=== PATIENT | female | born 1990 | race Caucasian/White ===

== ENCOUNTER 2025-02-26 16:57 | Emergency (ER) | payer BC, SELFPAY ==
[2025-02-26 17:00] VITALS: BP 112/73; PULSE 76; RESP 18; TEMP 36.3; O2SAT 99; BMI 23.2
--- NOTE | 2025-02-26 17:28 | CRLHL7_ITS ---
For Patients: As a result of the Century Cures Act, medical imaging exams and procedure reports are released immediately into your electronic medical record. You may view this report before your referring provider. If you have questions, please contact your health care provider. INDICATION: ABD PAIN, LOWER BACK PAIN TECHNIQUE: CT abdomen and pelvis acquired with 66 cc Isovue 370 IV contrast. COMPARISON: None. FINDINGS: Lower chest: 2 millimeter right lower lobe subpleural indeterminate nodule, likely intrapulmonary lymphoid tissue. ABDOMEN: Liver: Normal enhancement. No focal suspicious hepatic lesions. Gallbladder and biliary: Normal gallbladder without radiopaque stone. Normal caliber bile ducts. Spleen: Normal size and enhancement. Pancreas: Normal enhancement without peripancreatic inflammatory changes or ductal dilatation. Adrenal glands: Normal adrenal glands. Kidneys and ureters: Mild left-sided hydroureteronephrosis secondary to a 3 millimeter stone in the distal left ureter. No right hydroureteronephrosis. GI tract: The stomach is relatively decompressed. Normal caliber small and large bowel loops. Normal appendix. Vascular structures: Normal caliber abdominal aorta. Lymph nodes: No lymphadenopathy in the abdomen or pelvis by size criteria. Peritoneum: Trace free fluid in the pelvis. No free air or focal drainable collection. PELVIS: Genitourinary system: Urinary bladder is decompressed. Age-appropriate uterus and ovaries. SKELETAL STRUCTURES AND SOFT TISSUES: Sclerotic foci in the pelvis statistically represent bone islands. IMPRESSION: Mild left-sided hydroureteronephrosis secondary to a 3 millimeter stone in the distal left ureter. Please note that all CT scans at this facility use dose modulation, iterative reconstruction, and/or weight-based dosing when appropriate to reduce radiation dose to as low as reasonably achievable. Dictated by Royal Valdivia MD @ 02/26/2025 6:30:50 PM (Electronically Signed)
--- NOTE | 2025-02-26 17:30 | ED.ABDPAIN ---
HPI - Abdominal Pain General Chief Complaint: Abdominal Pain Stated Complaint: abdomen pain Time Seen by Provider: 02/26/25 17:07 History of Present Illness HPI narrative: This 35-year-old female comes in reporting abdominal pain. This began about 3 days ago and was coming and going somewhat and till last evening when it became constant and has worsened since then. She states that she has had some associated nausea and vomiting. She does not report any fevers. She does have some loss of appetite. She states that the ride here was uncomfortable when going over little bumps. Related Data Previous Rx's ?Medication ?Instructions ?Recorded hydrocodone 5 mg-acetaminophen 325 1 tab PO Q4-6H PRN pain #15 tabs 02/26/25 mg tablet ketorolac 10 mg tablet 10 mg PO TID 5 days #15 tabs 02/26/25 ondansetron HCl 4 mg tablet 4 mg PO Q6H #15 tabs 02/26/25 Allergies Allergy/AdvReac Type Severity Reaction Status Date / Time No Known Drug Allergies Allergy Verified 02/26/25 18:00 Review of Systems Status of ROS Reports: 10 or more systems reviewed and unremarkable except as noted in History and below Narrative Constitutional: No fevers, no weight gain or loss. Eyes: No discharge. No vision changes. HENT: No congestion, no sore throat, no ear pain. Cardiovascular: No chest pain, no palpitations. Respiratory: No shortness of breath, no wheezes, no cough. Gastrointestinal: Lower abdominal pain with nausea and vomiting. No diarrhea. Genitourinary: No dysuria, no hematuria. Musculoskeletal: Normal range of motion. Skin: No rashes, no pruritis. Neurological: No dizziness, weakness, sensory change, speech change. Endo/Heme/Allergies: No bruising or bleeding. No polydipsia. Pysch: no suicidality, no anxiety, no insomnia. All other systems reviewed and are negative. Exam Narrative: Exam Narrative: Constitutional: Well-developed, well-nourished, no acute distress. HEENT: Normocephalic, atraumatic. Neck: Normal range of motion. Nontender. Supple. Heart: Regular. No murmurs. Normal rate. Intact distal pulses. Lungs: Clear to auscultation. No chest discomfort. No wheezes, rhonchi, or rales. Abdomen: Decreased bowel sounds. Pain across the lower abdomen. Mild rebound tenderness. Genitalia: Deferred. Back: No midline tenderness. Normal range of motion. Extremities: Normal range of motion. No injury. Skin: Intact. No rash. Warm. No erythema or pallor. Neurologic: No altered sensation. No weakness. Alert and oriented. Psychiatric: No suicidality. No anxiety or depression. No insomnia. Nursing notes and vitals signs are reviewed. Const: Vital Signs, click to edit/add: Vital Signs - 24 hr 02/26/25 17:00 Temperature 97.4 F L Pulse Rate [Right Pulse Oximeter] 76 Respiratory Rate 18 Blood Pressure [Ri ght Upper Arm] 112/73 Pulse Oximetry 99 Oxygen Delivery Me thod Room Air Course Vital Signs Vital signs: Initial Vital Signs Temperature 97.4 F L 02/26/25 17:00 Temperature Source Temporal Artery Scan 02/26/25 17:00 Pulse Rate 76 02/26/25 17:00 Pulse Rhythm Regular 02/26/25 17:00 Pulse Strength 3+ Normal 02/26/25 17:00 Respiratory Rate 18 02/26/25 17:00 Blood Pressure 112/73 02/26/25 17:00 Blood Pressure Mean 86 02/26/25 17:00 Blood Pressure Position Sitting 02/26/25 17:00 Pulse Oximetry 99 02/26/25 17:00 Oxygen Delivery Method Room Air 02/26/25 17:00 Vital Signs Temperature 97.4 F L 02/26/25 17:00 Pulse Rate 76 02/26/25 17:00 Respiratory Rate 18 02/26/25 17:00 Blood Pressure 112/73 02/26/25 17:00 Pulse Oximetry 99 02/26/25 17:00 Oxygen Delivery Method Room Air 02/26/25 17:00 Temperature 97.4 F L 02/26/25 17:00 Pulse Rate 76 02/26/25 17:00 Respiratory Rate 18 02/26/25 17:00 Blood Pressure 112/73 02/26/25 17:00 Pulse Oximetry 99 02/26/25 17:00 Oxygen Delivery Method Room Air 02/26/25 17:00 MDM - Abdominal Pain MDM Narrative Medical decision making narrative: This patient comes in with abdominal pain as described above. CT images are obtained and show evidence of a 3 mm stone in the left distal ureter. Urinalysis is not showing any sign of infection. The patient did receive an intravenous dose of Toradol 15 mg. This is her 1st encounter with a kidney stone so I did describe various factors related to this. She is more likely to be able to pass this stone on her own and is discharged with prescriptions for Toradol, [place], and Zofran. I did advise her regarding signs and symptoms that would indicate a need for return and re-evaluation. Lab Data Labs: Lab Results 02/26/25 02/26/25 Range/Units 17:40 Unknown WBC 4.95 (4.50-11.00) K/uL RBC 4.24 (4.00-5.20) m/uL Hgb 10.8 L (12.0-16.0) gm/dL Hct 34.7 (33.0-51.0) % MCV 82 (80-100) fL MCH 26 (26-34) pg MCHC 31 L (32-36) gm/dL RDW Coeff of Joe 13.1 (11.5-15.5) % Plt Count 330 (140-440) K/uL Neut % (Auto) 45.5 (42.0-72.0) % Lymph % (Auto) 39.0 (20-44) % [place] % (Auto) 10.7 (0.0-11.0) % Eos % (Auto) 3.8 (0.0-7.0) % Baso % (Auto) 0.8 (0.0-3.0) % Neut # (Auto) 2.25 (1.7-7.0) K/uL Lymph # (Auto) 1.93 (0.90-2.90) K/uL [place] # (Auto) 0.50 (0.00-0.90) K/UL Eos # (Auto) 0.19 (0.00-0.50) K/uL Baso # (Auto) 0.04 (0.00-0.30) K/uL Abs Immat Gran (auto) 0.01 (0.00-0.30) K/uL Imm/Tot Granulo (auto) 0.2 % Sodium 138 (135-149) mmol/L Potassium 3.5 L (3.6-5.1) mmol/L Chloride 103 (96-114) mmol/L Carbon Dioxide 26 (20-32) mmol/L Anion Gap 9 (7-15) mEq/L BUN 14 (5-24) mg/dL Creatinine 1.0 (0.5-1.5) mg/dL Estimated Creat Clear 68.45 Estimated GFR 76 ml/min Glucose 97 (60-115) mg/dL Calcium 9.0 (8.4-10.6) mg/dL Urine Color Yellow (Yellow) Urine Appearance Clear (Clear) Urine pH 6.0 (5.0-8.5) Ur Specific [place] >= 1.030 (1.000-1.030) Urine Protein 1+ A (Negative) Urine Glucose (UA) Negative (Negative) Urine Ketones Negative (Negative) Urine Blood 3+ A (Negative) Urine Nitrite Negative (Negative) Urine Bilirubin Negative (Negative) Urine Urobilinogen 0.2 (0.2-1.0) Ur Leukocyte Esterase Negative (Negative) Urine RBC 2-5 A (0-2) Urine WBC 2-5 (0-5) Ur Squamous Epith Cells Moderate A (None-Few) Amorphous Sediment Moderate A (None) Urine Bacteria Few A (None) Imaging Data CT scan - abdomen: Radiologist's impression: Mild left-sided hydroureteronephrosis secondary to a 3 millimeter stone in the distal left ureter. Discharge Plan Discharge Clinical Impression: Calculus, ureteral Patient Disposition: Home, Self-Care Condition: Stable Additional Instructions: Take medications as needed and indicated. Follow up with MD or return if symptoms are persistent or worsening. Prescriptions: New hydrocodone-acetaminophen 5-325 mg tablet 1 tab PO Q4-6H PRN (Reason: pain) Qty: 15 0RF ondansetron HCl 4 mg tablet 4 mg PO Q6H Qty: 15 0RF ketorolac 10 mg tablet 10 mg PO TID 5 Days Qty: 15 0RF Follow Up/Referrals: Sarah Porter MD [Primary Care Provider, Family Practice] Stand Alone Forms: [employer] Info Instructions
[2025-02-26 17:43] LABS: Appearance Urine Clear (Clear); Bilirubin Urine Negative (Negative); Blood Urine 3+ (Negative); Color Urine Yellow (Yellow); Glucose Urine Negative (Negative); Ketones Urine Negative (Negative); Leukocyte Esterase Urine Negative (Negative); Nitrite Urine Negative (Negative); Protein Urine 1+ (Negative); Specific Gravity Urine >= 1.030 (1.000-1.030); Urobilinogen Urine 0.2 (0.2-1.0)
[2025-02-26 17:49] LABS: Basophils Absolute Auto 0.04 K/uL (0.00-0.30); Basophils Percent Auto 0.8 % (0.0-3.0); Eosinophils Absolute Auto 0.19 K/uL (0.00-0.50); Eosinophils Percent Auto 3.8 % (0.0-7.0); Hematocrit 34.7 % (33.0-51.0); Hemoglobin* 10.8 gm/dL (12.0-16.0); Immature Granulocytes Abs Auto 0.01 K/uL (0.00-0.30); Immature Granulocytes Pct Auto 0.2 %; Lymphocytes Absolute Auto 1.93 K/uL (0.90-2.90); Mean Corpuscular HGB Conc 31 gm/dL (32-36); Mean Corpuscular Hemoglobin 26 pg (26-34); Mean Corpuscular Volume 82 fL (80-100); Monocytes Percent Auto 10.7 % (0.0-11.0); Neutrophils Absolute Auto 2.25 K/uL (1.7-7.0); Neutrophils Percent Auto 45.5 % (42.0-72.0); Platelet Count* 330 K/uL (140-440); RDW Coefficient of Variation % 13.1 % (11.5-15.5); Red Blood Count 4.24 m/uL (4.00-5.20); White Blood Count* 4.95 K/uL (4.50-11.00)
[2025-02-26 17:59] LABS: Slide Review Reflex No
[2025-02-26 18:00] LABS: Amorphous Sediment Urine Moderate; Bacteria Urine Few; Squamous Epithelial Cell Urine Moderate (None-Few)
--- OUTSIDE RECORDS SUMMARY | 2025-02-26 18:20 | XMS_ITS | Clinical Summary ---
Author Organization [employer] [facility] Address [address] [place] [id number] Care Team Providers Care Settlement Clerk Name Role Phone Sarah Porter MD Primary Care Provider [phone] Allergies No known active allergies Medications No known medications Active Problems No known active problems Encounters Date Type Department Care Team Description 02/26/2025 Nurse Triage [facility] [address] [place] [address] Sarah Porter MD Abdominal Pain from Last 3 Months Immunizations Immunization Administration Dates Next Due Influenza, IIV4 06/08/2021,08/31/2020,05/28/2019 Tdap 05/28/2019 Family History Medical History Relation Name Comments Diabetes Maternal Grandfather Allergies Mother Relation Name Status Comments Maternal Grandfather Mother Social History Tobacco Use Types Packs/Day Years Used Date Smoking Tobacco: Former Smokeless Tobacco: Former Tobacco Cessation:Counseling Given: Yes Alcohol Use Standard Drinks/Week Comments Yes 0 (1 standard drink = 0.6 oz pur e alcohol) occasionally PHQ-2 Answer Date Recorded PHQ-2 TOTAL SCORE 0 07/09/2021 Social Connections Answer Date Recorded Do you often feel lonely or isolated from those around you? 0 02/28/2024 Financial Resource Strain Answer Date R ecorded Difficulty of Paying Living Expenses 3 02/28/2024 Difficulty of Paying Living Expenses Not on file 02/28/2024 Food Insecurity Answer Date Recorded Do you worry your food will run out before you are able to buy more? 1 02/28/2024 Transportation Needs Answer Date Record ed Does lack of transportation keep you from medica l appointments? 1 02/28/2024 Does lack of transportation keep you from work, meetings or getting things that you need? 1 02/28/2024 Housing Stability Answer Date Recorded What is your housing situation today? 1 02/28/2024 Utilities Answer Date Recorded Do you have trouble paying f or utilities (for example, heat, electricity, water, phone)? 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[employer] Gender Identity Not on file Sexual Orientation Not on file Occupation Industry Job Start Date Job End Date Not on file Not on file Not on file Not on file Obstetrics History Last Filed Vital Signs Vital Sign Reading Time Taken Comments Blood Pressure 122/79 02/28/2024 9:15 AM CDT Pulse 77 02/28/2024 9:15 AM CDT Temperature 36.9 C (98.5 F) 06/20/2017 5:35 PM CDT Respiratory Rate 20 06/20/2017 5:35 PM CDT Oxygen Saturation 100% 02/28/2024 9:15 AM CDT Inhaled Oxygen Concentration - - Weight 61.5 kg (135 lb 9.6 oz) 02/28/2024 9:15 A M CDT Height 165.7 cm (5' 5.24) 07/09/2021 2:44 PM CD T Body Mass Index 22.4 07/09/2021 2:44 PM CDT Plan of Treatment Health Maintenance Due Date Last Done Comments HIV for age 15-65 2006 Hepatitis C screening for age 18-79 2009 Hepatitis B series for 19+ (1 of 3 - 19+ 3-dose series) 2010 Pap test for age 21-65 06/12/2022 06/12/2019 BMI (ht and wt on same day) for age 18+ 07/09/2022 07/09/2021, 05/28/2019, 06/20/2017, Additional history exists Depression screening for age 12+ 07/09/2022 07/09/2021, 06/12/2019, 05/28/2019 COVID-19 vaccine series ( season) 2024 10/15/2021 Influenza Vaccine (Season Ended) 2025 06/08/2021, 08/31/2020, 05/28/2019 Tetanus booster 05/28/2029 05/28/2019 Tdap Completed 05/28/2019 Pneumococcal series for age 6-49 Aged Out No longer eligible based on patient's age to complete this topic Procedures Procedure Name Priority Date/Time Associated Diagnosis Comments CHIEF NURSING OFFICER THIN PREP PAP SCREEN IMAGED Routine 06/12/2019 1:50 PM CDT Encounter for Papanicolaou smear for cervical cancer screening from Last 3 Months or Most Recently Relevant to Health Maintenance Results * CHIEF NURSING OFFICER THIN PREP PAP SCREEN IMAGED (06/12/2019 1:50 PM CDT) Case Report Gynecologic Cytology Report Case: [id number] Authorizing Provider: Sarah Porter MD Collected: 06/12/2019 1350 Ordering Location: [facility] Received: 06/12/2019 1426 Clinic First Screen: Anny Krause Specimen: CHIEF NURSING OFFICER ThinPrep Vial Screening, Cervical 06/20/2019 8:32 AM CDT [facility] INTERPRETATION/ RESULT NEGATIVE FOR INTRAEPITHELIAL LESION OR MALIGNANCY (NIL) (none) 06/20/2019 8:32 AM CDT [facility] at 0832 CDT SPECIMEN ADEQUACY Satisfactory for evaluation Endocervical component present 06/20/2019 8:32 AM CDT [facility] HPV REQUEST HPV if ASCUS 06/20/2019 8:32 AM CDT [facility] Date of LMP 05/29/2019 06/20/2019 8:32 AM CDT [facility] Last Pap Date n/a 06/20/2019 8:32 AM CDT [facility] Last Pap Result First Pap/Unknown 8:32 AM CDT [facility] Abnormal Pap or [place] Bx in last 5 years No 06/20/2019 8:32 AM CDT [facility] Menstrual Status Regular Periods 06/20/2019 8:32 AM CDT [facility] [place] Bx Done Today No 06/20/2019 8:32 AM CDT [facility] Additional Information None given 06/20/2019 8:32 AM CDT [facility] Automated Review Successful 06/20/2019 8:32 AM T [facility] Comment:Specimen processed s uccessfully by automated belt sewer device, ThinPrep Imaging System, [employer] Note The pap test is a screening technique, not a diagnostic procedure. It is used primarily to screen for squamous cancers and precursor lesions. Published studies have shown that it is subject to both false negative and false positive results. The pap test should not be used as the sole means to diagnose or exclude pre-malignant and malignant lesions. Cytology is screened and interpreted at [facility] - [address], [place] [address] and [facility] - [address]; [place] [address] and [facility] - [address]; [place] [address] and [facility] [address]; [place] [address] 06/20/2019 8:32 AM T [facility] Other (Cervical) Non-Blood / Unknown 06/12/2019 1:50 PM CDT 06/12/2019 2:26 PM CDT us Sarah Porter MD PATHOLOGY/CYTOLOGY Final Re sult [facility] [address] [place] [address], [place] from Last 3 Months or Most Recently Relevant to Health Maintenance Insurance [employer] Care Teams Settlement Clerk Relationship Specialty Start Date End Date Sarah Porter MD [address] [place] [address] PCP - General Family Practice 07/09/21
[2025-02-26 18:35] LABS: Chloride* 103 mmol/L (96-114); Sodium* 138 mmol/L (135-149)
[2025-02-26 18:36] LABS: Potassium* 3.5 mmol/L (3.6-5.1)
[2025-02-26 18:38] LABS: Blood Urea Nitrogen* 14 mg/dL (5-24); Est. Creatinine Clearance* 68.45; Estimated Glomerular Filt Rate 76 ml/min
[2025-02-26 18:39] LABS: Anion Gap 9 mEq/L (7-15); Carbon Dioxide* 26 mmol/L (20-32); Glucose* 97 mg/dL (60-115)
[2025-02-26] MEDS: KETOROLAC 30 MG/ML inj 15 MG IVP (19:02)
== END 2025-02-26 19:16 | disposition home or self-care (01) ==
PROVIDERS: Emergency Provider Emergency Medicine Emergency Medical Services; PCP Family Medicine
DX: N20.1 Calculus of ureter (principal); R11.2 Nausea with vomiting, unspecified; R63.0 Anorexia
CPT/HCPCS: 36415; 74177; 80048; 81001; 85025; 87086; 96374; 99284; 99285; J1885; Q9967